=== PATIENT | female | born 1995 | race Two or more races ===

== ENCOUNTER 2020-07-10 15:44 | Inpatient (IN) | payer OTHER ==
[2020-07-17] MEDS ORDERED: ZOFRAN8 MG PO (08:33)
[2020-07-17] MEDS ORDERED: PEPCID20 MG PO (08:34)
[2020-07-17] MEDS ORDERED: METOCLOPRAMIDE10 MG PO (08:36)
== END 2020-07-17 09:48 | disposition home or self-care (01) | DRG 833 ==
LOC: OB/GYN 15:44
PROVIDERS: ADMIT Obstetrics & Gynecology; ATTEND Obstetrics & Gynecology
DX: O21.0 Mild hyperemesis gravidarum (principal); Z3A.08 8 weeks gestation of pregnancy

== ENCOUNTER 2020-09-02 19:41 | Emergency (ER) | payer OTHER ==
[~2020-09-02] VITALS: Ht 157.5 cm; Wt 55.8 kg
[~2020-09-02 19:41] MED LIST: METOCLOPRAMIDE10 MG PO; PEPCID20 MG PO; ZOFRAN8 MG PO
[2020-09-02] MEDS ORDERED: PRENATABS RX T1 EACH (19:57)
== END 2020-09-02 23:54 | disposition home or self-care (01) ==
LOC: ER 19:41
DX: O21.0 Mild hyperemesis gravidarum (principal); Z3A.15 15 weeks gestation of pregnancy; Z03.818 Encounter for observation for suspected exposure to other biological agents ruled out

== ENCOUNTER 2021-02-05 16:40 | Inpatient (IN) | payer OTHER ==
[~2021-02-05] VITALS: Ht 157.5 cm; Wt 72.6 kg
[~2021-02-05 16:40] MED LIST changes: +PRENATABS RX T1 EACH
[2021-02-05] MEDS ORDERED: IRON18 MG PO (18:50)
[2021-02-05] MEDS ORDERED: PEPCID AC20 MG PO (18:50)
[2021-02-09] MEDS ORDERED: CODE1TAB37 PO (08:12)
[2021-02-09] MEDS ORDERED: IBUPROFEN400 MG PO (08:12)
[2021-02-09] MEDS ORDERED: PEPCID AC20 MG PO (08:15)
== END 2021-02-09 10:48 | disposition home or self-care (01) | DRG 788 ==
LOC: LDR 16:40 → OB/GYN 16:40 → LDR 23:02 → O/R 02-06 19:45 → OB/GYN 02-06 21:27
PROVIDERS: Obstetrics & Gynecology; ADMIT Obstetrics & Gynecology; ATTEND Obstetrics & Gynecology
PROC: 3E033VJ Introduction of Other Hormone into Peripheral Vein, Percutaneous Approach (ICD-10-PCS; 2021-02-06)
PROC: 4A033R1 Measurement of Arterial Saturation, Peripheral, Percutaneous Approach (ICD-10-PCS; 2021-02-06)
PROC: 10D00Z1 Extraction of Products of Conception, Low, Open Approach (ICD-10-PCS; principal; 2021-02-06 16:00)
DX: O41.03X0 Oligohydramnios, third trimester, not applicable or unspecified (principal); O62.1 Secondary uterine inertia; Z3A.38 38 weeks gestation of pregnancy; Z37.0 Single live birth; Z20.822 Contact with and (suspected) exposure to COVID-19

== ENCOUNTER 2022-05-23 21:23 | Emergency (ER) | payer OTHER ==
[~2022-05-23] VITALS: Ht 157.5 cm; Wt 59.0 kg
[~2022-05-23 21:23] MED LIST changes: +CODE1TAB37 PO; +IBUPROFEN400 MG PO; +IRON18 MG PO; +PEPCID AC20 MG PO
[2022-05-24] MEDS ORDERED: ONDANSETRON ODT8 MG PO (04:53)
== END 2022-05-24 05:21 | disposition home or self-care (01) ==
LOC: ER 21:23
DX: O21.0 Mild hyperemesis gravidarum (principal); Z3A.01 Less than 8 weeks gestation of pregnancy; Z88.8 Allergy status to other drugs, medicaments and biological substances

== ENCOUNTER 2022-05-27 17:44 | Emergency (ER) | payer OTHER ==
[~2022-05-27] VITALS: Ht 157.5 cm; Wt 59.0 kg
[~2022-05-27 17:44] MED LIST changes: +ONDANSETRON ODT8 MG PO
[2022-05-27] MEDS ORDERED: ZOFRAN (18:22)
== END 2022-05-27 21:16 | disposition home or self-care (01) ==
LOC: ER 17:44
DX: O20.9 Hemorrhage in early pregnancy, unspecified (principal); Z3A.08 8 weeks gestation of pregnancy; Z88.8 Allergy status to other drugs, medicaments and biological substances

== ENCOUNTER 2024-04-09 14:00 | Inpatient (IN) | payer OTHER ==
[~2024-04-09] VITALS: Ht 154.9 cm; Wt 52.2 kg
[~2024-04-09 14:00] MED LIST changes: +ZOFRAN
--- NOTE | 2024-04-09 14:16 | NUR ---
PACIENTE ALERTA Y ORIENTADA X3. PACIENTE EMBARAZADA DE 8 SEMANAS REFIERE VENIR POR VOMITOS DESDE LA MADRUGADA DE HOY. SE ESTIMAN SIGNOS VITALES Y SE UBICA.
[2024-04-09] MEDS ORDERED: 0.9 % SODIUM CHLORIDE 1,000 ML IV STA (16:23)
[2024-04-09] MEDS ORDERED: ONDANSETRON HCL 2 MG/ML VIAL IV STA ×2 (16:24→21:39)
[2024-04-09 17:04] LABS: HEMATOCRIT 35.2 % (36.0-45.00); HEMOGLOBIN 12.5 g/dL (12.0-15.00); MEAN CELL VOLUME 82.8 fL (80.00-100.00); MEAN CORPUSCULAR HEMOGLOBIN 29.4 pg (27.00-32.0); MEAN CORPUSCULAR HGB CONC 35.5 g/dl (32.0-36.0); PLATELET COUNT 221 K/uL (150-450); RED BLOOD COUNT 4.26 M/uL (4.00-6.00); RED CELL DISTRIBUTION WIDTH 14.2 % (11.5-14.5)
--- NOTE | 2024-04-09 17:20 | NUR ---
RN HANSON EDUCA A PTE SOBRE TRATAMIENTO MEDICO SOLICITADO POR MD EN TUR[place]. LA MISMA REFIERE ENTENDER Y SE PROCEDE A LA APRYL DE MUESTRAS DE LAB BAJO MEDIDAS ASEPTICAS Y ADMINISTRACION DE MEDICAMENTOS.
[2024-04-09 17:48] LABS: URINE APPEARANCE Clear; URINE BILIRRUBIN Negative (NEGATIVE); URINE BLOOD Negative; URINE COLOR Yellow; URINE GLUCOSE Negative (NEGATIVE); URINE LEUKOCYTE Negative; URINE NITRATE Negative; URINE PROTEIN Negative (NEGATIVE)
[2024-04-09 17:49] LABS: CALCIUM 9.2 mg/dL (8.5-10.1); CREATININE SERUM 0.52 mg/dL (0.55-1.02); GFR 142.54; POTASSIUM 4.34 mEq/L (3.5-5.1)
[2024-04-09 17:52] LABS: URINE BACTERIA 817.5 uL (0.0-1933); URINE EPITHELIAL CELLS 19.1 uL (0.0-38.8); URINE RBC 5.1 uL (0.0-20.8); URINE WBC 5.1 uL (0.0-23.2)
[2024-04-09] MEDS ORDERED: FAMOTIDINE/PF 20 MG in 0.9 % SODIUM CHLORIDE 8 ML IV PUSH STA (21:40)
--- NOTE | 2024-04-09 23:00 | NUR ---
SE RECIBE PTE ALERTA ORIENTADA X3 EN ZEESHAN CON BARANDAS ELEVADAS POR MONTANEZ SEGURIDAD.VENOPUNCION PATENTE DAVID DE EDEMA Y ERITEMA RECIBIENDO 0.9 NSS BAJANDO A 200ML/HR.PTE DE CON 8 SEMANAS DE EMBARAZO.PENDIENTE A REEVALUAR.
[2024-04-10] MEDS ORDERED: FAMOTIDINE/PF 20 MG in 0.9 % SODIUM CHLORIDE 8 ML IV PUSH SCH (06:20)
[2024-04-10] MEDS ORDERED: ONDANSETRON HCL 2 MG/ML VIAL IV SCH (06:20)
[2024-04-10] MEDS ORDERED: RINGERS SOLUTION,LACTATED 1,000 ML IV SCH (06:30)
[2024-04-10] MEDS ORDERED: MULTIVIT INFUSN,ADULT 4,VIT K 10 ML VIAL IV SCH (09:00)
[2024-04-12] MEDS ORDERED: FAMOTIDINE/PF 20 MG/2 ML VIAL ONE (07:35)
[2024-04-12] MEDS ORDERED: PYRIDOXINE HCL 50 MG TABLET PO SCH (13:37)
[2024-04-12] MEDS ORDERED: PYRIDOXINE HCL 100 MG TABLET PO SCH (17:00)
[2024-04-13] MEDS ORDERED: AZITHROMYCIN 500 MG VIAL IV NR (08:45)
[2024-04-13] MEDS ORDERED: METROnidazole 70 GM GEL.W.APPL VAG SCH (21:00)
[2024-04-14] MEDS ORDERED: FAMOTIDINE/PF 20 MG/2 ML VIAL ONE (07:55)
[2024-04-15] MEDS ORDERED: ONDANSETRON HCL 2 MG/ML VIAL IV NR (14:00)
[2024-04-15] MEDS ORDERED: ONDANSETRON HCL 2 MG/ML VIAL IV SCH (17:00)
[2024-04-15] MEDS ORDERED: FAMOtidine 20 MG TABLET PO STA (18:04)
[2024-04-16] MEDS ORDERED: FAMOtidine 20 MG TABLET PO SCH (09:00)
[2024-04-17] MEDS ORDERED: FAMOTIDINE20 MG PO (13:50)
[2024-04-17] MEDS ORDERED: PYRIDOXINE HCL100 MG PO (13:51)
[2024-04-17] MEDS ORDERED: METOCLOPRAMIDE10 MG PO (13:53)
[2024-04-17] MEDS ORDERED: ZOFRAN8 MG PO (13:54)
== END 2024-04-17 16:15 | disposition home or self-care (01) | DRG 832 ==
LOC: ER 14:01 → OB/GYN 04-10 06:51
PROVIDERS: Emergency Medicine; ADMIT Obstetrics & Gynecology; ATTEND Obstetrics & Gynecology
PROC: 4A1HXCZ Monitoring of Products of Conception, Cardiac Rate, External Approach (ICD-10-PCS; principal; 2024-04-10)
PROC: BY49ZZZ Ultrasonography of First Trimester, Single Fetus (ICD-10-PCS; 2024-04-10)
PROC: BU4CZZZ Ultrasonography of Uterus and Ovaries (ICD-10-PCS; 2024-04-10)
DX: O21.1 Hyperemesis gravidarum with metabolic disturbance (principal); O23.591 Infection of other part of genital tract in pregnancy, first trimester; O98.311 Other infections with a predominantly sexual mode of transmission complicating pregnancy, first trimester; O21.0 Mild hyperemesis gravidarum; O36.80X0 Pregnancy with inconclusive fetal viability, not applicable or unspecified; O34.211 Maternal care for low transverse scar from previous cesarean delivery; A56.8 Sexually transmitted chlamydial infection of other sites; B96.89 Other specified bacterial agents as the cause of diseases classified elsewhere; Z3A.08 8 weeks gestation of pregnancy; Z20.822 Contact with and (suspected) exposure to COVID-19

== ENCOUNTER 2024-05-03 12:15 | Emergency (ER) | payer OTHER ==
[~2024-05-03] VITALS: Ht 157.5 cm; Wt 50.8 kg
[~2024-05-03 12:15] MED LIST changes: +FAMOTIDINE20 MG PO; +PYRIDOXINE HCL100 MG PO
[2024-05-03] MEDS ORDERED: ONDANSETRON HCL 2 MG/ML VIAL IV ONE (13:30)
[2024-05-03] MEDS ORDERED: 0.9 % SODIUM CHLORIDE 500 ML IV ONE (13:30)
[2024-05-03] MEDS ORDERED: FAMOtidine 10 MG/ML (4ML VIAL) IV ONE (13:30)
[2024-05-03] MEDS ORDERED: FAMOtidine 200mg/20ml VIAL ONE (13:41)
[2024-05-03] MEDS ORDERED: ONDANSETRON HCL 2 MG/ML VIAL ONE (13:41)
[2024-05-03 14:34] LABS: HEMATOCRIT 30.7 % (36.0-45.00); HEMOGLOBIN 10.9 g/dL (12.0-15.00); MEAN CELL VOLUME 84.2 fL (80.00-100.00); MEAN CORPUSCULAR HEMOGLOBIN 29.9 pg (27.00-32.0); MEAN CORPUSCULAR HGB CONC 35.5 g/dl (32.0-36.0); PLATELET COUNT 220 K/uL (150-450); RED BLOOD COUNT 3.65 M/uL (4.00-6.00)
[2024-05-03 14:37] LABS: ALBUMIN 3.6 gm/dL (3.4-5.0); BILIRUBIN TOTAL 0.86 mg/dL (0.3-1.2); CALCIUM 9.5 mg/dL (8.5-10.1); CREATININE SERUM 0.45 mg/dL (0.55-1.02); GFR 168.42; GLOBULINA 3.6 G/DL (2.4-3.5); POTASSIUM 3.83 mEq/L (3.5-5.1); TOTAL PROTEIN 7.2 gm/dL (6.4-8.2)
[2024-05-03] MEDS ORDERED: MEPERIDINE HCL/PF 50 MG/ML VIAL IV ONE (15:00)
[2024-05-03] MEDS ORDERED: ONDANSETRON ODT8 MG PO (16:28)
== END 2024-05-03 16:45 | disposition home or self-care (01) ==
LOC: ER 12:16
PROVIDERS: General Practice
DX: O21.0 Mild hyperemesis gravidarum (principal); Z3A.11 11 weeks gestation of pregnancy; Z88.8 Allergy status to other drugs, medicaments and biological substances; J45.909 Unspecified asthma, uncomplicated

== ENCOUNTER 2024-05-05 10:41 | Emergency (ER) | payer OTHER ==
[~2024-05-05] VITALS: Ht 157.5 cm; Wt 50.8 kg
[2024-05-05] MEDS ORDERED: FAMOTIDINE/PF 20 MG in 0.9 % SODIUM CHLORIDE 8 ML IV PUSH STA (10:53)
[2024-05-05] MEDS ORDERED: ONDANSETRON HCL 2 MG/ML VIAL IV STA (10:53)
[2024-05-05] MEDS ORDERED: ONDANSETRON HCL 2 MG/ML VIAL ONE (10:59)
[2024-05-05] MEDS ORDERED: FAMOtidine 200mg/20ml VIAL ONE (11:00)
[2024-05-05 11:19] LABS: HEMATOCRIT 30.9 % (36.0-45.00); HEMOGLOBIN 10.7 g/dL (12.0-15.00); MEAN CELL VOLUME 85.2 fL (80.00-100.00); MEAN CORPUSCULAR HEMOGLOBIN 29.6 pg (27.00-32.0); MEAN CORPUSCULAR HGB CONC 34.7 g/dl (32.0-36.0); PLATELET COUNT 209 K/uL (150-450); RED BLOOD COUNT 3.63 M/uL (4.00-6.00)
[2024-05-05 11:38] LABS: CREATININE SERUM 0.47 mg/dL (0.55-1.02); GFR 160.18; POTASSIUM 3.71 mEq/L (3.5-5.1)
[2024-05-05 11:57] LABS: URINE APPEARANCE Clear; URINE BILIRRUBIN Negative (NEGATIVE); URINE BLOOD Negative; URINE COLOR Yellow; URINE GLUCOSE Negative (NEGATIVE); URINE LEUKOCYTE Negative; URINE NITRATE Negative; URINE PROTEIN Negative (NEGATIVE)
[2024-05-05 11:58] LABS: URINE BACTERIA 125.9 uL (0.0-1933); URINE EPITHELIAL CELLS 11.5 uL (0.0-38.8); URINE WBC 2.7 uL (0.0-23.2)
[2024-05-05 12:36] LABS: URINE RBC 1.6 uL (0.0-20.8)
== END 2024-05-05 15:12 | disposition home or self-care (01) ==
LOC: ER 10:43
PROVIDERS: Emergency Medicine
DX: O99.611 Diseases of the digestive system complicating pregnancy, first trimester (principal); R11.10 Vomiting, unspecified; Z88.8 Allergy status to other drugs, medicaments and biological substances

== ENCOUNTER 2024-09-27 12:12 | Inpatient (IN) | payer OTHER ==
[~2024-09-27] VITALS: Ht 157.5 cm; Wt 63.5 kg
[2024-09-27 11:41] VITALS: BP 85/48
[~2024-09-27 12:12] MED LIST changes: -GUAIFEN/DEXTROMETHORPHAN/PE 10 ML BLIST.PACK PO ONE; -MAXFE CAPLET1 EAC1 PO; -OSEL75CA PO; -ZITHROMAX200 MG PO
[2024-09-27] MEDS ORDERED: RINGERS SOLUTION,LACTATED 1,000 ML IV SCH (12:30)
[2024-09-27 13:36] LABS: URINE APPEARANCE Cloudy; URINE BILIRRUBIN Small (NEGATIVE); URINE BLOOD Negative; URINE COLOR Dark Yellow; URINE GLUCOSE Negative (NEGATIVE); URINE LEUKOCYTE Negative; URINE NITRATE Negative; URINE PROTEIN 30 (NEGATIVE)
[2024-09-27 13:40] LABS: URINE BACTERIA 2017.1 uL (0.0-1933); URINE RBC 2.3 uL (0.0-20.8); URINE WBC 16.7 uL (0.0-23.2)
[2024-09-27 13:43] LABS: MEAN CELL VOLUME 77.1 fL (80.00-100.00); MEAN CORPUSCULAR HEMOGLOBIN 25.6 pg (27.00-32.0); MEAN CORPUSCULAR HGB CONC 33.5 g/dl (32.0-36.0); PLATELET COUNT 143 K/uL (150-450); RED BLOOD COUNT 2.92 M/uL (4.00-6.00); RED CELL DISTRIBUTION WIDTH 15.1 % (11.5-14.5)
[2024-09-27 13:44] LABS: HEMATOCRIT 22.5 % (36.0-45.00); HEMOGLOBIN 7.5 g/dL (12.0-15.00)
[2024-09-27 13:51] LABS: URINE EPITHELIAL CELLS > 201.7 uL (0.0-38.8); URINE KETONE >=160 (NEGATIVE)
[2024-09-27 13:58] LABS: INR 0.97; PARTIAL THROMBOPLASTIN TIME 28.8 SECONDS (22.0-34.0); PROTHROMBIN TIME 10.6 SECONDS (9.0-11.5)
[2024-09-27] MEDS ORDERED: ACETAMINOPHEN 500 MG GEL..CAP PO PRN (14:00)
[2024-09-27 14:23] LABS: ALBUMIN 2.9 gm/dL (3.4-5.0); BILIRUBIN TOTAL 0.5 mg/dL (0.3-1.2); CALCIUM 8.5 mg/dL (8.5-10.1); CREATININE SERUM 0.46 mg/dL (0.55-1.02); GFR 164.2; GLOBULINA 3.4 G/DL (2.4-3.5); POTASSIUM 3.62 mEq/L (3.5-5.1); TOTAL PROTEIN 6.3 gm/dL (6.4-8.2)
[2024-09-27 15:49] VITALS: BP 102/50; O2SAT 99
[2024-09-27] MEDS ORDERED: OSELTAMIVIR PHOSPHATE 75 MG CAPSULE PO SCH (17:00)
[2024-09-27 19:30] VITALS: BP 97/45; O2SAT 100
[2024-09-27 23:18] VITALS: BP 114/52; O2SAT 100
[2024-09-28 03:27] VITALS: BP 98/51; O2SAT 100
[2024-09-28 07:49] VITALS: BP 111/55
[2024-09-28 11:41] VITALS: BP 99/54; O2SAT 100
[2024-09-28 13:29] VITALS: BP 102/66
[2024-09-28 15:59] VITALS: BP 96/65
[2024-09-29] VITALS: BP 90/50
[2024-09-29] MEDS ORDERED: AZITHROMYCIN 500 MG TABLET PO NR (08:00)
[2024-09-29 09:00] VITALS: BP 106/70
[2024-09-29] MEDS ORDERED: FAMOtidine 20 MG TABLET PO SCH (09:00)
[2024-09-29] MEDS ORDERED: SOD FERRIC GLUC COMPLX/SUCROSE 125 MG in 0.9 % SODIUM CHLORIDE 100 ML IV SCH (09:00)
[2024-09-29 15:40] VITALS: BP 100/60
[2024-09-29] MEDS ORDERED: FAMOtidine 20 MG TABLET PO NR (17:00)
[2024-09-30 00:09] VITALS: BP 91/60
[2024-09-30 08:46] LABS: MEAN CORPUSCULAR HEMOGLOBIN 25.7 pg (27.00-32.0); MEAN CORPUSCULAR HGB CONC 33.5 g/dl (32.0-36.0); PLATELET COUNT 141 K/uL (150-450); RED BLOOD COUNT 2.87 M/uL (4.00-6.00); RED CELL DISTRIBUTION WIDTH 15.6 % (11.5-14.5)
[2024-09-30 08:47] LABS: HEMATOCRIT 22.1 % (36.0-45.00); HEMOGLOBIN 7.4 g/dL (12.0-15.00)
[2024-09-30] MEDS ORDERED: ZITHROMAX200 MG PO (08:56)
[2024-09-30] MEDS ORDERED: FAMOTIDINE20 MG PO (08:57)
[2024-09-30] MEDS ORDERED: OSEL75CA PO (08:57)
[2024-09-30] MEDS ORDERED: MAXFE CAPLET1 EAC1 PO (08:57)
[2024-09-30] MEDS ORDERED: AZITHROMYCIN 250 MG TABLET PO SCH (09:00)
[2024-09-30 10:33] VITALS: BP 98/61
== END 2024-09-30 11:49 | disposition home or self-care (01) | DRG 833 ==
LOC: OB/GYN 12:12 → LDR 12:12 → OB/GYN 09-28 10:42
PROVIDERS: Obstetrics & Gynecology; ADMIT Obstetrics & Gynecology; ATTEND Obstetrics & Gynecology
PROC: 8E0ZXY6 Isolation (ICD-10-PCS; principal; 2024-09-27)
PROC: 4A1HXCZ Monitoring of Products of Conception, Cardiac Rate, External Approach (ICD-10-PCS; 2024-09-27)
DX: O26.893 Other specified pregnancy related conditions, third trimester (principal); J10.1 Influenza due to other identified influenza virus with other respiratory manifestations; O99.013 Anemia complicating pregnancy, third trimester; Z3A.32 32 weeks gestation of pregnancy; D50.9 Iron deficiency anemia, unspecified; Z20.822 Contact with and (suspected) exposure to COVID-19

== ENCOUNTER → 2024-09-27 | Emergency (ER) | payer OTHER ==
[~2024-09-27] VITALS: Ht 157.5 cm; Wt 63.5 kg
[~2024-09-27] MED LIST changes: +GUAIFEN/DEXTROMETHORPHAN/PE 10 ML BLIST.PACK PO ONE; +MAXFE CAPLET1 EAC1 PO; +OSEL75CA PO; +VITATRUE COMBO1 EACH; +ZITHROMAX200 MG PO
== END | disposition still patient (30) ==
LOC: ER 10:06
DX: O26.893 Other specified pregnancy related conditions, third trimester (principal); Z3A.32 32 weeks gestation of pregnancy; R09.81 Nasal congestion; R50.9 Fever, unspecified

== ENCOUNTER 2024-11-09 07:28 | Inpatient (IN) | payer OTHER ==
[~2024-11-09] VITALS: Ht 157.5 cm; Wt 2.7 kg
[~2024-11-09 07:28] MED LIST changes: +MAXFE CAPLET1 EAC1 PO; +OSEL75CA PO; +ZITHROMAX200 MG PO
[2024-11-09 07:47] VITALS: BP 108/62
[2024-11-09 07:57] VITALS: BP 108/62
[2024-11-09 08:34] LABS: HEMATOCRIT 26.4 % (36.0-45.00); MEAN CELL VOLUME 74.8 fL (80.00-100.00); MEAN CORPUSCULAR HGB CONC 32.8 g/dl (32.0-36.0); PLATELET COUNT 187 K/uL (150-450); RED BLOOD COUNT 3.53 M/uL (4.00-6.00); RED CELL DISTRIBUTION WIDTH 18.5 % (11.5-14.5)
[2024-11-09 08:41] LABS: HEMOGLOBIN 8.7 g/dL (12.0-15.00); MEAN CORPUSCULAR HEMOGLOBIN 24.6 pg (27.00-32.0)
[2024-11-09] MEDS ORDERED: RINGERS SOLUTION,LACTATED 1,000 ML IV SCH ×2 (08:45→17:15)
[2024-11-09 08:49] LABS: INR 0.95; PARTIAL THROMBOPLASTIN TIME 26.8 SECONDS (22.0-34.0); PROTHROMBIN TIME 10.4 SECONDS (9.0-11.5)
[2024-11-09 08:53] LABS: URINE APPEARANCE Clear; URINE BILIRRUBIN Negative (NEGATIVE); URINE BLOOD Negative; URINE COLOR Yellow; URINE GLUCOSE Negative (NEGATIVE); URINE KETONE Negative (NEGATIVE); URINE LEUKOCYTE Negative; URINE NITRATE Negative; URINE PROTEIN Negative (NEGATIVE)
[2024-11-09 09:00] LABS: URINE BACTERIA 384.2 uL (0.0-1933); URINE EPITHELIAL CELLS 49.6 uL (0.0-38.8); URINE WBC 11.5 uL (0.0-23.2)
[2024-11-09 09:32] LABS: ALBUMIN 2.9 gm/dL (3.4-5.0); BILIRUBIN TOTAL 0.47 mg/dL (0.3-1.2); CALCIUM 9.1 mg/dL (8.5-10.1); CREATININE SERUM 0.48 mg/dL (0.55-1.02); GFR 155.14; GLOBULINA 3.5 G/DL (2.4-3.5); POTASSIUM 4.28 mEq/L (3.5-5.1); TOTAL PROTEIN 6.4 gm/dL (6.4-8.2)
[2024-11-09 09:33] LABS: URINE RBC 1.9 uL (0.0-20.8)
[2024-11-09 11:06] VITALS: BP 93/59; O2SAT 100
[2024-11-09] MEDS ORDERED: CEFOXITIN SODIUM 2,000 MG VIAL IV NR (15:15)
[2024-11-09 15:24] VITALS: BP 99/58
[2024-11-09] MEDS ORDERED: OXYTOCIN 10 UNITS/ML VIAL ONE ×2 (15:51→20:38)
[2024-11-09] MEDS ORDERED: ERYTHROMYCIN BASE OPHT 1GM EACH TUBE OP ONE ×2 (15:51→17:15)
[2024-11-09] MEDS ORDERED: CHLORHEXIDINE GLUCONATE 120 ML BOTTLE TOP NR (17:15)
[2024-11-09] MEDS ORDERED: MORPHINE SULFATE 4 MG/ML CARTRIDGE IV PRN (17:15)
[2024-11-09] MEDS ORDERED: ONDANSETRON HCL 2 MG/ML VIAL IV PRN (17:15)
[2024-11-09] MEDS ORDERED: OXYTOCIN 1,000 ML IV SCH (17:15)
[2024-11-09] MEDS ORDERED: KETOROLAC TROMETHAMINE 30 MG VIAL IV SCH (18:00)
[2024-11-09] MEDS ORDERED: MORPHINE SULFATE 4 MG/ML VIAL IV ONE (18:25)
[2024-11-09] MEDS ORDERED: KETOROLAC TROMETHAMINE 30 MG VIAL ONE (20:50)
[2024-11-09 20:52] LABS: HEMATOCRIT 25.5 % (36.0-45.00); MEAN CELL VOLUME 75.3 fL (80.00-100.00); MEAN CORPUSCULAR HEMOGLOBIN 24.1 pg (27.00-32.0); MEAN CORPUSCULAR HGB CONC 32.1 g/dl (32.0-36.0); PLATELET COUNT 176 K/uL (150-450); RED BLOOD COUNT 3.39 M/uL (4.00-6.00); RED CELL DISTRIBUTION WIDTH 17.9 % (11.5-14.5)
[2024-11-09] MEDS ORDERED: SIMETHICONE 125 MG CAPSULE PO SCH (21:00)
[2024-11-09 21:04] LABS: HEMOGLOBIN 8.2 g/dL (12.0-15.00)
[2024-11-09 21:49] VITALS: BP 124/58
[2024-11-10 00:17] VITALS: BP 104/62
[2024-11-10 08:00] VITALS: BP 101/66
[2024-11-10] MEDS ORDERED: NAPROXEN 500 MG TABLET PO SCH (09:00)
[2024-11-10] MEDS ORDERED: ACETAMINOPHEN WITH CODEINE 1 UDTAB TABLET PO PRN (09:00)
[2024-11-10 14:54] VITALS: BP 103/67
[2024-11-11 00:09] VITALS: BP 95/60
[2024-11-11 08:18] VITALS: BP 109/71
[2024-11-11 17:07] VITALS: BP 102/63
[2024-11-11 23:49] VITALS: BP 106/65
== END 2024-11-12 14:15 | disposition home or self-care (01) | DRG 788 ==
LOC: LDR 07:28 → O/R 16:27 → OB/GYN 20:03
PROVIDERS: ADMIT Obstetrics & Gynecology; ATTEND Obstetrics & Gynecology
PROC: 4A1HXCZ Monitoring of Products of Conception, Cardiac Rate, External Approach (ICD-10-PCS; 2024-11-09)
PROC: 10D00Z1 Extraction of Products of Conception, Low, Open Approach (ICD-10-PCS; principal; 2024-11-09 15:30)
DX: O34.211 Maternal care for low transverse scar from previous cesarean delivery (principal); Z3A.39 39 weeks gestation of pregnancy; Z37.0 Single live birth